=== PATIENT | female | born 1965 | race Caucasian/White ===

== ENCOUNTER → 2021-11-02 11:18 | Outpatient (BNVA) | payer OTHER, SELFPAY | PROVIDERS: Visit Provider Physician Assistant Surgical | DX: Z13.89 Encounter for screening for other disorder (principal) ==

== ENCOUNTER → 2021-11-05 08:17 | Outpatient (BNVA) | payer OTHER, SELFPAY | PROVIDERS: Visit Provider Physician Assistant Surgical | DX: Z13.89 Encounter for screening for other disorder (principal) ==

== ENCOUNTER 2021-11-25 11:46 | Outpatient (REF) | payer OTHER, SELFPAY ==
--- NOTE | ~2021-11-25 | XR_ITS ---
EXAMINATION: XR CHEST CLINICAL INFORMATION: Morbid obesity COMPARISON: None TECHNIQUE: 2 views of the chest were obtained. FINDINGS: Normal symmetric lung volumes. No parenchymal consolidation. No pleural effusion. No pneumothorax. Cardiomediastinal silhouette and pulmonary vascularity are within normal limits. No acute osseous abnormalities. XR/XR chest 2V IMPRESSION: Clear lungs
[2021-11-25 12:27] LABS: MANUAL DIFF FLAG NO
--- NOTE | 2021-11-25 12:28 | ECG_ITS ---
Test Reason : E66.01 Blood Pressure : / mmHG Vent. Rate : 084 BPM Atrial Rate : 084 BPM P-R Int : 172 ms QRS Dur : 082 ms QT Int : 360 ms P-R-T Axes : 067 065 052 degrees QTc Int : 425 ms Normal sinus rhythm Normal ECG No previous ECGs available Referred By: Oj Alford Electronically Signed By:MICH STEWARD MD
[2021-11-25 12:36] LABS: Basophils Absolute Auto 0.1 X10*3/uL (0.0-0.2); Basophils Percent Auto 0.6 % (0-2); Eosinophils Absolute Auto 0.1 X10*3/uL (0.0-0.4); Eosinophils Percent Auto 1.6 % (0-4); Hemoglobin 16.4 g/dl (12.0-16.0); Imm Gran Abs Auto 0.02 X10*3/uL (0.00-0.03); Imm Gran Pct Auto 0.2 % (0.0-0.4); Lymphocytes Absolute Auto 2.5 X10*3/uL (1.2-4.9); Lymphocytes Percent Auto 29.2 % (20-40); Mean Corpuscular HGB Conc 32.8 g/dl (31.0-35.0); Mean Corpuscular Volume 97.7 fL (80.0-98.0); Mean Platelet Volume 11.8 fL (9.4-12.3); Monocytes Absolute Auto 0.6 X10*3/uL (0.1-1.2); Monocytes Percent Auto 6.7 % (2-11); Neutrophils Absolute Auto 5.3 x10*3/uL (2.0-8.3); Neutrophils Percent Auto 61.7 % (45-73); Platelet Count 159 X10*3/uL (160-400); Red Blood Count 5.12 X10*6/uL (4.20-5.50); White Blood Count 8.6 X10*3/uL (4.8-10.8)
[2021-11-25 12:45] LABS: Estimated Average Glucose 303 mg/dL; Hemoglobin A1c % 12.2 %
[2021-11-25 13:02] LABS: Alanine Aminotransferase 17 U/L (0-31); Albumin Level 3.5 g/dL (3.5-5.0); Alkaline Phosphatase 93 U/L (39-117); Anion Gap 13 (12-20); Aspartate Amino Transferase 21 U/L (5-31); Bilirubin Total 0.5 mg/dL (0.0-1.0); Blood Urea Nitrogen 10 mg/dL (9-16); C Reactive Protein 1.16 mg/dL (< or = 0.50); Calcium 9.1 mg/dL (8.4-10.2); Carbon Dioxide 26 mmol/L (22-29); Chloride 104 mmol/L (96-108); Cholesterol 146 mg/dL; Estimated Glomerular Filt Rate 57; Glucose Random 256 mg/dL (60-115); HDL Cholesterol 33 mg/dL; Iron 74 mcg/dL (30-160); LDL Cholesterol Calculated 97 mg/dl; Percent Iron Saturation 24 % (15-50); Potassium 4.2 mmol/L (3.3-5.1); Sodium 139 mmol/L (135-145); Total Iron Binding Capacity 308 mcg/dL (228-428); Total Protein 6.7 g/dL (6.5-8.0); Triglycerides 80 mg/dL; Unsaturated Iron Binding 234 ug/dL
[2021-11-25 13:25] LABS: TSH reflex Free T4 1.45 uIU/mL (0.32-4.0); Vitamin D 25-OH Total 6.8 ng/mL (>30)
[2021-11-25 13:38] LABS: Folate 6.3 ng/mL (> or = 4.0); Vitamin B12 537 pg/mL (200-900)
[2021-11-25 13:56] LABS: Ferritin 116 ng/mL (10-250)
[2021-11-26 15:00] LABS: Calcium (PTHI) 8.9 mg/dL (8.6-10.4); PTHI 71 pg/mL (16-77)
[2021-11-28 11:45] LABS: H Pylori Breath Test Negative (Negative)
[2021-11-29 13:16] LABS: Vitamin B1 9 nmol/L (8-30)
[2021-11-29 22:26] LABS: Zinc 69 mcg/dL (60-130)
[2021-12-01 22:36] LABS: Vitamin A 28 mcg/dL (38-98)
== END 2021-11-25 11:47 | disposition home or self-care (01) ==
LOC: HO.XRAY 11:46
PROVIDERS: PCP Internal Medicine; Visit Provider Physician Assistant Surgical
DX: Z01.818 Encounter for other preprocedural examination (principal); E66.01 Morbid (severe) obesity due to excess calories
CPT/HCPCS: 36415; 71046; 80053; 80061; 82306; 82607; 82728; 82746; 83013; 83036; 83540; 83970; 84425; 84443; 84590; 84630; 85025; 86140; 93005

== ENCOUNTER → 2021-11-29 08:08 | Outpatient (BNVA) | payer OTHER, SELFPAY | PROVIDERS: PCP Internal Medicine; Visit Provider Surgery | DX: Z13.89 Encounter for screening for other disorder (principal) ==

== ENCOUNTER → 2021-12-01 08:16 | Outpatient (BNVA) | payer OTHER, SELFPAY | PROVIDERS: PCP Internal Medicine; Visit Provider Dietitian, Registered | DX: E66.09 Other obesity due to excess calories (principal); E11.9 Type 2 diabetes mellitus without complications; E78.5 Hyperlipidemia, unspecified; Z68.42 Body mass index [BMI] 45.0-49.9, adult; Z88.1 Allergy status to other antibiotic agents; Z88.0 Allergy status to penicillin; Z88.2 Allergy status to sulfonamides; Z71.3 Dietary counseling and surveillance | CPT/HCPCS: 97802 ==

== ENCOUNTER → 2021-12-30 14:00 | Outpatient (BNVA) | payer OTHER, SELFPAY | PROVIDERS: Visit Provider Counselor Mental Health | DX: F33.1 Major depressive disorder, recurrent, moderate (principal); E66.01 Morbid (severe) obesity due to excess calories; E11.9 Type 2 diabetes mellitus without complications; Z79.4 Long term (current) use of insulin | CPT/HCPCS: 90791 ==

== ENCOUNTER → 2022-01-05 08:32 | Outpatient (BNVA) | payer OTHER, SELFPAY | PROVIDERS: PCP Internal Medicine; Visit Provider Surgery | DX: E66.01 Morbid (severe) obesity due to excess calories (principal) ==

== ENCOUNTER → 2022-01-24 14:29 | Outpatient (BNVA) | payer OTHER, SELFPAY | PROVIDERS: PCP Internal Medicine; Visit Provider Dietitian, Registered | DX: E66.01 Morbid (severe) obesity due to excess calories (principal); Z68.42 Body mass index [BMI] 45.0-49.9, adult | CPT/HCPCS: 97803 ==